=== PATIENT | male | born 1995 | race Caucasian/White ===

== ENCOUNTER 2019-04-27 16:24 | Outpatient (CLI) | payer OTHER ==
--- NOTE | 2019-04-27 16:57 | ULT ---
VENOUS DOPPLER ULTRASOUND OF THE LEFT LOWER EXTREMITY: 04/27/19 HISTORY: Edema in the left lower extremity (calf swelling). TECHNIQUE: Talbert scale, with color flow and spectral Doppler imaging of the deep venous system of the left lower extremity was performed. FINDINGS: There is good flow, compression, and augmentation noted in the left common femoral, femoral, deep fem oral, popliteal, posterior tibial and greater saphenous veins. IMPRESSION: No evidence of DVT in the left lower extremity. POS: [facility]
== END 2019-04-27 16:25 | disposition home or self-care (01) ==
LOC: ULT 16:24 → BICULT 16:25
DX: S83.512A Sprain of anterior cruciate ligament of left knee, initial encounter (principal)